=== PATIENT | male | born 1950 | race Caucasian/White ===

== ENCOUNTER 2018-12-12 11:02 | Emergency (ER) | payer BC, OTHER ==
[2018-12-12] MEDS ORDERED: FENTANYL CITR 100 MCG/2 ML ONE (12:37)
[2018-12-12] MEDS ORDERED: ONDANSETRON 4 MG/2 ML VIAL ONE (12:37)
[2018-12-12] MEDS ORDERED: FAMOTIDINE 20 MG/2 ML VIAL IV ONE (12:37)
[2018-12-12] MEDS ORDERED: NA CHLORIDE 0.9% 1,000 ML ONE ×2 (12:37→15:15)
[2018-12-12 12:40] LABS: Basophils % 0.4 % (0-1.3); Eosinophils % 0.3 % (0-4.4); Hematocrit 42.6 % (39.6-49.0); Lymphocytes % 8.4 % (15.3-44.8); MPV 9.8 fL (7.6-11.3); Monocytes % 4.1 % (3.3-12.3); RBC Red Blood Cell Count 4.85 M/uL (4.33-5.43)
[2018-12-12 12:54] LABS: ALT/SGPT 25 U/L (12-78); AST/SGOT 19 U/L (15-37); Albumin 4.1 g/dL (3.4-5.0); Alkaline Phosphatase 47 U/L (45-117); BUN Blood Urea Nitrogen 25 mg/dL (7-18); Bicarbonate 24 mmol/L (21-32); Bilirubin Direct 0.1 mg/dL (0-0.2); Bilirubin Total 0.6 mg/dL (0.2-1.0); Glucose Level 137 mg/dL (74-106); Lipase 113 U/L (73-393); Magnesium 2.4 mg/dL (1.8-2.4); NT PRO-BNP 102 pg/mL (<125); Potassium 4.1 mmol/L (3.5-5.1); Protein, Total 6.9 g/dL (6.4-8.2); Protime INR 1.01; Sodium Level 143 mmol/L (136-145); Troponin (Emerg Dept Use Only) < 0.02 ng/mL (0.0-0.045)
[2018-12-12] MEDS ORDERED: MORPHINE 4 MG/ML SYR ONE (13:23)
--- NOTE | 2018-12-12 13:34 | RAD REPORT ---
EXAM DESCRIPTION: RAD - Chest Single View - 12/12/2018 12:43 pm CLINICAL HISTORY: Abdominal pain, abdominal distention COMPARISON: January 2010 TECHNIQUE: AP portable chest image was obtained 1238 hours . FINDINGS: Lung volumes are low accentuating lung markings. No focal infiltrate, mass or failure find ing. Lung markings match comparison. Heart and vasculature are normal. No measurable pleural effusion and no pneumothorax. No acute bony abnormality seen. No acute aortic findings suspected. IMPRESSION: No acute cardiopulmonary process. No significant interval change.
--- NOTE | 2018-12-12 14:45 | RAD REPORT ---
EXAM DESCRIPTION: CT - Abdomen Pelvis Wo Contrast - 12/12/2018 2:29 pm CLINICAL HISTORY: Abdominal pain, left upper quadrant pain, chills COMPARISON: None. TECHNIQUE: Axial [address] imaging of the abdomen and pelvis was performed without IV contrast. No IV contrast was given because of allergy, abnormal renal function, patient refusal or physician re quest. Oral contrast was given. All CT scans are performed using dose optimization technique as appropriate and may include automated exposure control or mA/KV adjustment according to patient size. FINDINGS: No suspicious findings in the lung bases. The liver, spleen and pancreas show no suspicious findings on non-contrast imaging. Gallbladder and b iliary tree are also without suspicious finding. Mild left-sided hydronephrosis is present secondary to a 3 millimeter stone in the distal left ureter . Stone is approximately 3 cm from the UVJ. Patient has additional all 2- 4 mm sized nonobstructing c joseph calculi on the left. A 6 millimeter nonobstructing calcification present upper pole of the right kidney. No right-sided hydronephrosis. Left kidney shows perinephric stranding and edema change. No significant adrenal finding. Isodense renal masses and pyelonephritis cannot be excluded in the abse nce of IV contrast. The urinary bladder is without significant finding. Prostate gland is enlarged. No dilated bowel loops or bowel wall thickening. No free air, free fluid or inflammatory stranding. N o hernia, mass or bulky lymphadenopathy. Mild diverticulosis is present. No suspicious bony findings. IMPRESSION: Mild left-sided hydronephrosis secondary to a 3 millimeter distal left ureteral calculus . Stone is approximately 3 cm from the left UVJ. Left renal edema present. Mild perinephric stranding present. Left-sided pyelonephritis is not exclud ed. Bilateral nonobstructing calyx calculi. Full assessment is limited is the absence of IV contrast.
--- NOTE | 2018-12-12 14:57 | ER ---
Nurse's Notes [facility] Name: Juan Manuel Macias Age: 68 yrs Sex: Male : 1950 Arrival Date: 12/12/2018 Time: 11:05 Bed 19 Private MD: Carroll Yao Diagnosis: Abdominal tenderness;Hydronephrosis with renal and ureteral calculous obstruction-distal left 3 mm , 3 cm above uvj;Unspecified kidney failure Presentation: 12/12 11:08 Presenting complaint: Patient states: LUQ pain, nausea, constipation, bloating, and aa5 chills that began since this morning. Transition of care: patient was not received from another setting of care. Onset of symptoms was December 12, 2018. Risk Assessment: Do you want to hurt yourself or someone else? Patient reports no desire to harm self or others. Initial Sepsis Screen: Does the patient meet any 2 criteria? No. Patient's initial sepsis screen is negative. Does the patient have a suspected source of infection? No. Patient's initial sepsis screen is negative. Care prior to arrival: None. 11:08 Method Of Arrival: Ambulatory aa5 11:08 Acuity: NESTOR 3 aa5 Historical: - Allergies: 11:10 No Known Allergies; aa5 - Home Meds: 11:10 Aspirin Oral [Active]; aa5 - PMHx: 11:10 Hypertension; aa5 - PSHx: 11:10 Hernia repair; heart cath without stent placement; aa5 - Immunization history:: Flu vaccine is not up to date. - Social history:: Smoking status: Patient/guardian denies using tobacco. - Ebola Screening: : No symptoms or risks identified at this time. - Family history:: not pertinent. Screenin:20 Abuse screen: Denies threats or abuse. Nutritional screening: No deficits noted. la1 Tuberculosis screening: No symptoms or risk factors identified. Fall Risk None identified. Assessment: 12:30 General: Appears in no apparent distress. comfortable, Behavior is calm, cooperative, la1 Reports chills for 0-12 hours. Pain: Complains of pain in left upper quadrant Pain currently is 4 out of 10 on a pain scale. Quality of pain is described as Pain began 2 hours ago. Neuro: Level of Consciousness is awake, alert, obeys commands, Oriented to person, place, time, situation. Cardiovascular: Capillary refill < 3 seconds Patient's skin is warm and dry. Respiratory: Airway is patent Respiratory effort is even, unlabored, Respiratory pattern is regular, symmetrical. GI: Abdomen is flat, Bowel sounds present X 4 quads. Abd is soft X 4 quads Abdomen is tender to palpation in left upper quadrant Reports constipation, nausea, vomiting, Patient currently denies diarrhea. : Denies burning with urination. Derm: Skin is intact, is healthy with good turgor, Skin is pink, warm \T\ dry. Musculoskeletal: Capillary refill < 3 seconds, Range of motion: intact in all extremities. 13:04 Reassessment: pain unchanged, provider notified, new medication orders received. em 13:30 Reassessment: Patient appears in no apparent distress at this time. Patient and/or em family updated on plan of care and expected duration. Pain level reassessed. Patient is alert, oriented x 3, equal unlabored respirations, skin warm/dry/pink. Patient states feeling better. 14:30 Reassessment: Patient appears in no apparent distress at this time. Patient is alert, em oriented x 3, equal unlabored respirations, skin warm/dry/pink. rates pain 2/10 Patient states feeling better. 15:00 Reassessment: Patient appears in no apparent distress at this time. Patient and/or em family updated on plan of care and expected duration. Pain level reassessed. Patient is alert, oriented x 3, equal unlabored respirations, skin warm/dry/pink. pending completion of IV NS bolus. Vital Signs: 11:10 BP 160 / 92; Pulse 60; Resp 16 S; Temp 98.0(TE); Pulse Ox 96% on R/A; Weight 106.59 kg aa5 (R); Height 5 ft. 10 in. (177.80 cm) (R); Pain 4/10; 12:24 BP 179 / 88; Pulse 56; Resp 18; Pulse Ox 99% on R/A; Pain 4/10; em 13:30 BP 161 / 87; Pulse 71; Resp 18; Pulse Ox 97% on R/A; Pain 2/10; em 14:30 BP 159 / 86; Pulse 73; Resp 18; Pulse Ox 99% on R/A; Pain 1/10; em 15:30 BP 179 / 78; Pulse 81; Resp 16; Pulse Ox 99% on R/A; em 11:10 Body Mass Index 33.72 (106.59 kg, 177.80 cm) aa5 ED Course: 11:05 Patient arrived in ED. mr 11:06 Carroll Yao MD is Private Physician. mr 11:08 Arm band placed on. aa5 11:09 Triage completed. aa5 12:07 Darien Otero MD is Attending Physician. betty 12:13 Oscar Lamar LVN is Primary Nurse. em 12:20 Patient has correct armband on for positive identification. Bed in low position. Call la1 light in reach. Adult w/ patient. Pulse ox on. NIBP on. 12:37 Initial lab(s) drawn, by me, sent to lab. EKG done, by ED staff, reviewed by Darien Otero MD. Inserted saline lock: 22 gauge in right antecubital area, using aseptic technique. Blood collected. 12:43 XRAY Chest (1 view) In Process Unspecified. EDMS 14:28 CT completed. Patient tolerated procedure well. Patient moved back from CT. mw3 14:30 Abdomen In Process Unspecified. EDMS 14:55 Carroll Yao MD is Referral Physician. betty 14:55 Lenard Miller MD is Referral Physician. betty 15:59 No provider procedures requiring assistance completed. IV discontinued, intact, em bleeding controlled, No redness/swelling at site. Pressure dressing applied. Administered Medications: 12:35 Drug: NS 0.9% 1000 ml Route: IV; Rate: 1 bolus; Site: right antecubital; em 13:30 Follow up: IV Status: Completed infusion; IV Intake: 1000ml em 12:35 Drug: fentaNYL (PF) 25 mcg Route: IVP; Site: right antecubital; iw 13:04 Follow up: Response: No adverse reaction; Pain is unchanged, physician notified em 12:35 Drug: Zofran 4 mg Route: IVP; Site: right antecubital; iw 13:13 Follow up: Response: No adverse reaction; Nausea is decreased em 12:43 Drug: Pepcid 20 mg Route: IVP; Site: right antecubital; iw 13:04 Follow up: Response: No adverse reaction em 13:13 Drug: morphine 4 mg Route: IVP; Site: right antecubital; iw 13:30 Follow up: Response: No adverse reaction; Pain is decreased hj 15:09 Drug: NS 0.9% 1000 ml Route: IV; Rate: 1 bolus; Site: right antecubital; em 16:02 Follow up: IV Status: Completed infusion; IV Intake: 1000ml em 15:09 Drug: Flomax 0.4 mg Route: PO; em 15:44 Follow up: Response: No adverse reaction em 15:09 Drug: Cipro 500 mg Route: PO; em 15:44 Follow up: Response: No adverse reaction em 15:11 Drug: Rocephin - (cefTRIAXone) 1 grams Route: IVPB; Infused Over: 30 mins; Site: right iw antecubital; 15:20 Follow up: Response: No adverse reaction; IV Status: Completed infusion; IV Intake: 10mlem Intake: 13:30 IV: 1000ml; Total: 1000ml. em 15:20 IV: 10ml; Total: 1010ml. em 16:02 IV: 1000ml; Total: 2010ml. em Outcome: 14:55 Discharge ordered by . [facility] 15:59 Discharged to home ambulatory, with family. em 15:59 Condition: good 15:59 Discharge instructions given to patient, Instructed on discharge instructions, follow up and referral plans. medication usage, urine strainer, Demonstrated understanding of instructions, follow-up care, medications, Prescriptions given X 4. 16:02 Patient left the ED. em Signatures: Dispatcher [employer] EDMS Ivan Finch jb1 Darien Otero MD MD cha Rivera, Mary mr Oscar Lamar, ELECTRONIC COMMERCE SPECIALIST ELECTRONIC COMMERCE SPECIALIST em Italia Duran RN RN iw Calderon, Audri, RN RN aa5 Attema, Lee, RN RN la1 Cesar Montiel RN RN hj Willis, Michelle mw3 Corrections: (The following items were deleted from the chart) 14:26 12:24 BP 179 / 88; Pulse 56bpm; Resp 18bpm; Pulse Ox 99% RA; Pain 4/10; hj em 14:26 13:30 BP 161 / 87; Pulse 71bpm; Resp 18bpm; Pulse Ox 97% RA; Pain 2/10; hj em 14:43 13:30 Reassessment: Patient appears in no apparent distress at this time. Patient em and/or family updated on plan of care and expected duration. Pain level reassessed. Patient is alert, oriented x 3, equal unlabored respirations, skin warm/dry/pink. Patient states feeling better. 15:43 15:11 Response: No adverse reaction; IV Status: Completed infusion; IV Intake: 10ml em em
--- NOTE | 2018-12-12 14:57 | EDPHYS ---
Physician Documentation [facility] Name: Juan Manuel Macias Age: 68 yrs Sex: Male : 1950 Arrival Date: 12/12/2018 Time: 11:05 Bed 19 Private MD: Carroll Yao ED Physician Darien Otero HPI: 12/12 12:14 This 68 yrs old Male presents to ER via Ambulatory with complaints of betty Abdominal Pain, Nausea, Constipation. 12:14 The patient presents to the emergency department with nausea, vomiting, diarrhea, that betty is intermittent. Onset: The symptoms/episode began/occurred this morning. Possible causes: unknown. The symptoms are aggravated by nothing. The symptoms are alleviated by nothing. Associated signs and symptoms: The patient has no apparent associated signs or symptoms. Severity of symptoms: At their worst the symptoms were mild moderate in the emergency department the symptoms are unchanged. The patient has not experienced similar symptoms in the past. Historical: - Allergies: 11:10 No Known Allergies; aa5 - Home Meds: 11:10 Aspirin Oral [Active]; aa5 - PMHx: 11:10 Hypertension; aa5 - PSHx: 11:10 Hernia repair; heart cath without stent placement; aa5 - Immunization history:: Flu vaccine is not up to date. - Social history:: Smoking status: Patient/guardian denies using tobacco. - Ebola Screening: : No symptoms or risks identified at this time. - Family history:: not pertinent. ROS: 12:14 Constitutional: Negative for fever, chills, and weight loss, Eyes: Negative for injury, betty pain, redness, and discharge, ENT: Negative for injury, pain, and discharge, Neck: Negative for injury, pain, and swelling, Cardiovascular: Negative for chest pain, palpitations, and edema, Respiratory: Negative for shortness of breath, cough, wheezing, and pleuritic chest pain, Back: Negative for injury and pain, : Negative for injury, bleeding, discharge, and swelling, MS/Extremity: Negative for injury and deformity, Skin: Negative for injury, rash, and discoloration, Neuro: Negative for headache, weakness, numbness, tingling, and seizure, Psych: Negative for depression, anxiety, suicide ideation, homicidal ideation, and hallucinations, Allergy/Immunology: Negative for hives, rash, and allergies, Endocrine: Negative for neck swelling, polydipsia, polyuria, polyphagia, and marked weight changes, Hematologic/Lymphatic: Negative for swollen nodes, abnormal bleeding, and unusual bruising. 12:14 Abdomen/GI: Positive for abdominal pain, of the left upper quadrant and left lower quadrant. Exam: 12:14 Constitutional: This is a well developed, well nourished patient who is awake, alert, betty and in no acute distress. Head/Face: Normocephalic, atraumatic. Eyes: Pupils equal round and reactive to light, extra-ocular motions intact. Lids and lashes normal. Conjunctiva and sclera are non-icteric and not injected. Cornea within normal limits. Periorbital areas with no swelling, redness, or edema. ENT: Nares patent. No nasal discharge, no septal abnormalities noted. Tympanic membranes are normal and external auditory canals are clear. Oropharynx with no redness, swelling, or masses, exudates, or evidence of obstruction, uvula midline. Mucous membranes moist. Neck: Trachea midline, no thyromegaly or masses palpated, and no cervical lymphadenopathy. Supple, full range of motion without nuchal rigidity, or vertebral point tenderness. No Meningismus. Chest/axilla: Normal chest wall appearance and motion. Nontender with no deformity. No lesions are appreciated. Cardiovascular: Regular rate and rhythm with a normal S1 and S2. No gallops, murmurs, or rubs. Normal PMI, no JVD. No pulse deficits. Respiratory: Lungs have equal breath sounds bilaterally, clear to auscultation and percussion. No rales, rhonchi or wheezes noted. No increased work of breathing, no retractions or nasal flaring. Back: No spinal tenderness. No costovertebral tenderness. Full range of motion. Male : Normal genitalia with no discharge or lesions. Skin: Warm, dry with normal turgor. Normal color with no rashes, no lesions, and no evidence of cellulitis. MS/ Extremity: Pulses equal, no cyanosis. Neurovascular intact. Full, normal range of motion. Neuro: Awake and alert, GCS 15, oriented to person, place, time, and situation. Cranial nerves II-XII grossly intact. Motor strength 5/5 in all extremities. Sensory grossly intact. Cerebellar exam normal. Normal gait. Psych: Awake, alert, with orientation to person, place and time. Behavior, mood, and affect are within normal limits. 12:14 Abdomen/GI: Inspection: abdomen appears normal, Bowel sounds: normal, Palpation: mild abdominal tenderness, moderate abdominal tenderness, in the right upper quadrant, left upper quadrant and left lower quadrant. Vital Signs: 11:10 BP 160 / 92; Pulse 60; Resp 16 S; Temp 98.0(TE); Pulse Ox 96% on R/A; Weight 106.59 kg aa5 (R); Height 5 ft. 10 in. (177.80 cm) (R); Pain 4/10; 12:24 BP 179 / 88; Pulse 56; Resp 18; Pulse Ox 99% on R/A; Pain 4/10; em 13:30 BP 161 / 87; Pulse 71; Resp 18; Pulse Ox 97% on R/A; Pain 2/10; em 14:30 BP 159 / 86; Pulse 73; Resp 18; Pulse Ox 99% on R/A; Pain 1/10; em 15:30 BP 179 / 78; Pulse 81; Resp 16; Pulse Ox 99% on R/A; em 11:10 Body Mass Index 33.72 (106.59 kg, 177.80 cm) aa5 MDM: 12:07 Patient medically screened. [facility] 12:16 Data reviewed: vital signs, nurses notes, lab test result(s), EKG, radiologic studies, [facility] CT scan, plain films. 12/12 12:14 Order name: Basic Metabolic Panel [facility] 12/12 12:14 Order name: CBC with Diff [facility] 12/12 12:14 Order name: LFT's [facility] 12/12 12:14 Order name: Magnesium [facility] 12/12 12:14 Order name: NT PRO-BNP [facility] 12/12 12:14 Order name: PT-INR; Complete Time: 13:06 [facility] 12/12 12:14 Order name: Troponin (emerg Dept Use Only); Complete Time: 13:06 [facility] 12/12 12:14 Order name: Lipase; Complete Time: 13:06 [facility] 12/12 12:14 Order name: Urine Culture [facility] 12/12 12:15 Order name: Basic Metabolic Panel; Complete Time: 13:06 EDMS 12/12 12:15 Order name: CBC with Automated Diff EDVT 12/12 12:15 Order name: Liver (Hepatic) Function; Complete Time: 13:06 [facility] 12/12 12:16 Order name: Magnesium; Complete Time: 13:06 [facility] 12/12 12:16 Order name: NT PRO-BNP; Complete Time: 13:06 [facility] 12/12 12:14 Order name: XRAY Chest (1 view); Complete Time: 14:09 [facility] 12/12 12:14 Order name: EKG; Complete Time: 12:17 [facility] 12/12 14:15 Order name: Abdomen ; Complete Time: 14:47 [facility] 12/12 15:49 Order name: CBC Smear Scan [facility] 12/12 16:01 Order name: Urine Dipstick--Ancillary (enter results) 12/12 12:14 Order name: Cardiac monitoring; Complete Time: 12:18 [facility] 12/12 12:14 Order name: EKG - Nurse/Tech; Complete Time: 12:35 [facility] 12/12 12:14 Order name: IV Saline Lock; Complete Time: 12:36 [facility] 12/12 12:14 Order name: Labs collected and sent; Complete Time: 12:36 [facility] 12/12 12:14 Order name: O2 Per Protocol; Complete Time: 12:18 [facility] 12/12 12:14 Order name: O2 Sat Monitoring; Complete Time: 12:18 [facility] 12/12 12:14 Order name: Urine Dipstick-Ancillary (obtain specimen); Complete Time: 14:40 [facility] Administered Medications: 12:35 Drug: NS 0.9% 1000 ml Route: IV; Rate: 1 bolus; Site: right antecubital; em 13:30 Follow up: IV Status: Completed infusion; IV Intake: 1000ml em 12:35 Drug: fentaNYL (PF) 25 mcg Route: IVP; Site: right antecubital; iw 13:04 Follow up: Response: No adverse reaction; Pain is unchanged, physician notified em 12:35 Drug: Zofran 4 mg Route: IVP; Site: right antecubital; iw 13:13 Follow up: Response: No adverse reaction; Nausea is decreased em 12:43 Drug: Pepcid 20 mg Route: IVP; Site: right antecubital; iw 13:04 Follow up: Response: No adverse reaction em 13:13 Drug: morphine 4 mg Route: IVP; Site: right antecubital; iw 13:30 Follow up: Response: No adverse reaction; Pain is decreased hj 15:09 Drug: NS 0.9% 1000 ml Route: IV; Rate: 1 bolus; Site: right antecubital; em 16:02 Follow up: IV Status: Completed infusion; IV Intake: 1000ml em 15:09 Drug: Flomax 0.4 mg Route: PO; em 15:44 Follow up: Response: No adverse reaction em 15:09 Drug: Cipro 500 mg Route: PO; em 15:44 Follow up: Response: No adverse reaction em 15:11 Drug: Rocephin - (cefTRIAXone) 1 grams Route: IVPB; Infused Over: 30 mins; Site: right iw antecubital; 15:20 Follow up: Response: No adverse reaction; IV Status: Completed infusion; IV Intake: 10mlem Disposition: 12/12/18 14:55 Discharged to Home. Impression: Abdominal tenderness, Hydronephrosis with renal and ureteral calculous obstruction - distal left 3 mm , 3 cm above uvj, Unspecified kidney failure. - Condition is Fair. - Discharge Instructions: Abdominal Pain, Adult, Kidney Stones, Nausea and Vomiting, Adult, Kidney Stones, [id number], Abdominal Pain, Adult, [id number]-[id number], Hydronephrosis, Dietary Guidelines to Help Prevent Kidney Stones, Hypokalemia. - Prescriptions for Cipro 250 mg Oral Tablet - take 1 tablet by ORAL route every 12 hours; 20 tablet. Tylenol- Codeine #3 300-30 mg Oral Tablet - take 2 tablet by ORAL route every 6 hours As needed; 30 tablet. Zofran 4 mg Oral Tablet - take 1 tablet by ORAL route every 12 hours As needed; 20 tablet. Flomax 0.4 mg Oral Capsule, Sust. Release 24 hr - take 1 capsule by ORAL route once daily 1/2 hour following the same meal each day; 30 capsule. - Medication Reconciliation Form, Thank You Letter, Antibiotic Education, Prescription Opioid Use form. - Follow up: Carroll Yao; When: 2 - 3 days; Reason: Recheck today's complaints, Continuance of care, Re-evaluation by your physician. Follow up: Lenard Miller; When: 2 - 3 days; Reason: Recheck today's complaints, Re-evaluation by your physician. - Problem is new. - Symptoms have improved. Signatures: Dispatcher [employer] Darien Hung MD MD cha Munoz, Edgar, PIECE MAKER PIECE MAKER em Italia Duran, RN RN iw Idalmis Mtz, RN RN aa5 Cesar Montiel RN hj Corrections: (The following items were deleted from the chart) 14:14 12:17 Abdomen Pelvis W Con+CT.RAD.BRZ ordered. EDVT EDMS 14:15 14:11 Abdomen Pelvis W Con+CT.RAD.BRZ ordered. EDVT EDMS 14:58 14:55 12/12/2018 14:55 Discharged to Home. Impression: Abdominal tenderness; betty Hydronephrosis with renal and ureteral calculous obstruction; Unspecified kidney failure. Condition is Fair. Discharge Instructions: Abdominal Pain, Adult, Kidney Stones, Nausea and Vomiting, Adult, Kidney Stones, Bwnf-[id number], Abdominal Pain, Adult, Vopk-ro-Sjdh, Hydronephrosis, Dietary Guidelines to Help Prevent Kidney Stones, Hypokalemia. Prescriptions for Cipro 250 mg Oral Tablet - take 1 tablet by ORAL route every 12 hours; 20 tablet, Tylenol-Codeine #3 300-30 mg Oral Tablet - take 2 tablet by ORAL route every 6 hours As needed; 30 tablet, Zofran 4 mg Oral Tablet - take 1 tablet by ORAL route every 12 hours As needed; 20 tablet, Flomax 0.4 mg Oral Capsule, Sust. Release 24 hr - take 1 capsule by ORAL route once daily 1/2 hour following the same meal each day; 30 capsule. and Forms are Medication Reconciliation Form, Thank You Letter, Antibiotic Education, Prescription Opioid Use. Follow up: Carroll Yao; When: 2 - 3 days; Reason: Recheck today's complaints, Continuance of care, Re-evaluation by your physician. Follow up: Lenard Miller; When: 2 - 3 days; Reason: Recheck today's complaints, Re-evaluation by your physician. Problem is new. Symptoms have improved. betty 16:02 14:58 12/12/2018 14:55 Discharged to Home. Impression: Abdominal tenderness; em Hydronephrosis with renal and ureteral calculous obstruction - distal left 3 mm , 3 cm above uvj; Unspecified kidney failure. Condition is Fair. Discharge Instructions: Abdominal Pain, Adult, Kidney Stones, Nausea and Vomiting, Adult, Kidney Stones, Uozr-kv-Cmge, Abdominal Pain, Adult, Lmlq-dy-Xtnz, Hydronephrosis, Dietary Guidelines to Help Prevent Kidney Stones, Hypokalemia. Prescriptions for Cipro 250 mg Oral Tablet - take 1 tablet by ORAL route every 12 hours; 20 tablet, Tylenol-Codeine #3 300-30 mg Oral Tablet - take 2 tablet by ORAL route every 6 hours As needed; 30 tablet, Zofran 4 mg Oral Tablet - take 1 tablet by ORAL route every 12 hours As needed; 20 tablet, Flomax 0.4 mg Oral Capsule, Sust. Release 24 hr - take 1 capsule by ORAL route once daily 1/2 hour following the same meal each day; 30 capsule. and Forms are Medication Reconciliation Form, Thank You Letter, Antibiotic Education, Prescription Opioid Use. Follow up: Carroll Yoa; When: 2 - 3 days; Reason: Recheck today's complaints, Continuance of care, Re-evaluation by your physician. Follow up: Lenard Miller; When: 2 - 3 days; Reason: Recheck today's complaints, Re-evaluation by your physician. Problem is new. Symptoms have improved. betty
[2018-12-12] MEDS ORDERED: CIPROFLOXACIN HCL 500 MG TAB ONE (15:14)
[2018-12-12] MEDS ORDERED: TAMSULOSIN 0.4 MG SR CAP ONE (15:14)
[2018-12-12] MEDS ORDERED: CEFTRIAXONE/SWI 1gm 1 GM/10 ML SYR ONE (15:15)
[2018-12-12 15:49] LABS: Blood Morphology Comment NOT SEEN (NOT SEEN); Platelet Estimate ADEQ; Urine White Blood Cell Casts OK
[2018-12-12 16:22] LABS: Urine Blood 3+ (NEG); Urine Glucose NEGATIVE (NEG); Urine Protein TRACE (NEG)
--- NOTE | 2018-12-13 07:54 | EKG ---
Test Date: 2018-12-12 Test Time: 12:33:39 Lighter: BEN MEASUREMENT RESULTS: Intervals: Rate: 56 DE: 158 QRSD: 88 QT: 454 QTc: 438 [place]: P: 37 DE: 158 QRS: 27 T: 34 INTERPRETIVE STATEMENTS: Sinus bradycardia Otherwise normal ECG Compared to ECG 04/13/2000 12:18:00 Sinus rhythm no longer present Myocardial infarct finding no longer present Left ventricular hypertrophy no longer present Electronically Signed On 12-13-18 07:53:30 CDT by Pete Parisi
== END 2018-12-12 16:02 | disposition home or self-care (01) ==
LOC: ER 11:02
DX: N13.2 Hydronephrosis with renal and ureteral calculous obstruction (principal); N19 Unspecified kidney failure; I10 Essential (primary) hypertension; Z79.82 Long term (current) use of aspirin
CPT/HCPCS: 36415; 71045; 74176; 80048; 80076; 81003; 83690; 83735; 83880; 84484; 85025; 85610; 87086; 87088; 93005; 96361; 96374; 96375; 99285; J0696; J2405; J3010; J7030